=== PATIENT | female | born 1950 ===

== ENCOUNTER → 2018-06-29 | Day surgery (SDC) | payer OTHER ==
[~2018-06-29] MED LIST: ASPIR 8181 MG PO; COZAAR50 MG PO; FOSAMAX70 MG PO; MACROBID 100 M100 MG PO; NORVASC2.5 M1 PO; TENTRAL PO; ULTRACET PO
== END | disposition home or self-care (01) ==
LOC: ADM 06-23 10:00 → CIR.AMB 05:30
DX: N81.3 Complete uterovaginal prolapse (principal)